=== PATIENT | female | born 1965 | race Caucasian/White ===

== ENCOUNTER → 2016-12-29 | Outpatient (CLI) | payer BC | LOC: MC.RAD 11:40 | DX: Z12.31 Encounter for screening mammogram for malignant neoplasm of breast (principal) ==

== ENCOUNTER → 2017-12-15 | Outpatient (CLI) | payer BC | LOC: MC.RAD 08:58 | DX: Z12.31 Encounter for screening mammogram for malignant neoplasm of breast (principal) ==

== ENCOUNTER → 2018-03-08 | Outpatient (CLI) | payer BC | LOC: COL.PUL 07:49 | DX: R05 Cough (principal) ==

== ENCOUNTER → 2018-04-12 | Outpatient (CLI) | payer BC | LOC: COL.PUL 10:26 | DX: J45.909 Unspecified asthma, uncomplicated (principal) | CPT/HCPCS: J7674 ==

== ENCOUNTER → 2018-12-27 | Outpatient (CLI) | payer BC | LOC: MC.RAD 10:32 | DX: Z12.31 Encounter for screening mammogram for malignant neoplasm of breast (principal); N63.10 Unspecified lump in the right breast, unspecified quadrant; N63.42 Unspecified lump in left breast, subareolar ==

== ENCOUNTER → 2019-12-26 | Outpatient (CLI) | payer BC | LOC: MC.RAD 09:45 | DX: Z12.31 Encounter for screening mammogram for malignant neoplasm of breast (principal) ==

== ENCOUNTER 2020-03-17 07:24 | Emergency (ER) | payer BC ==
[~2020-03-17] VITALS: Ht 170.2 cm; Wt 84.1 kg
[2020-03-17 07:29] VITALS: TEMP 98.3
[2020-03-17] MEDS ORDERED: NORCO 325 MG-51 TAB PO (10:29)
[2020-03-17 11:12] VITALS: BP 128/78; PULSE 80
== END 2020-03-17 10:40 | disposition home or self-care (01) ==
LOC: COL.ER 07:24
DX: S82.891A Other fracture of right lower leg, initial encounter for closed fracture (principal); Z88.6 Allergy status to analgesic agent; Z88.8 Allergy status to other drugs, medicaments and biological substances; X50.0XXA Overexertion from strenuous movement or load, initial encounter

== ENCOUNTER → 2020-12-24 | Outpatient (CLI) | payer BC ==
[~2020-12-24] MED LIST: NORCO 325 MG-51 TAB PO
== END ==
LOC: MC.RAD 08:58
DX: Z12.31 Encounter for screening mammogram for malignant neoplasm of breast (principal); N64.89 Other specified disorders of breast

== ENCOUNTER → 2020-12-31 | Outpatient (CLI) | payer BC | LOC: MC.RAD 12-30 13:00 | DX: N64.89 Other specified disorders of breast (principal) ==

== ENCOUNTER → 2023-03-09 | Outpatient (CLI) | payer BC | LOC: MC.RAD 08:42 | DX: Z12.31 Encounter for screening mammogram for malignant neoplasm of breast (principal); N63.10 Unspecified lump in the right breast, unspecified quadrant ==